=== PATIENT | male | born 1960 | race Caucasian/White ===

== ENCOUNTER 2022-01-28 04:03 | Emergency (ER) | payer MEDICAID ==
[~2022-01-28] VITALS: Ht 185.4 cm; Wt 156.5 kg
[~2022-01-28 04:03] MED LIST: LISI1TAB32 PO; METF-440 PO
--- NOTE | 2022-01-28 04:21 | NUR ---
PRESENTED TO THE ER FOR C/O LIGHTHEADEDNESS SINCE YESTERDAY. DENIED H/A, CP, SOB, OR N/V. AMBULATORY WITH STEADY GAITS TO BED 4. NO FACIAL DROOP OR SLURRED SPEECH NOTED. ON MONITOR. VSS. AWAITING FOR MD'S MAURA
[2022-01-28] MEDS ORDERED: ASPIRIN 325 MG TABLET ONE (04:39)
[2022-01-28] MEDS ORDERED: ASPIRIN 325 MG TABLET PO ONE (05:00)
[2022-01-28 06:02] LABS: BASOPHILS # (AUTO) 0.1 K/uL (0.0-0.2); BASOPHILS % (AUTO) 0.7 % (0.0-2.0); EOSINOPHILS % (AUTO) 1.4 % (0.0-6.0); HEMATOCRIT 45 % (39-51); HEMOGLOBIN 15.1 g/dL (13.5-17.5); LYMPHOCYTES # (AUTO) 2.8 K/uL (0.8-4.8); LYMPHOCYTES % (AUTO) 31.6 % (20.0-44.0); MEAN CORPUSCULAR HGB CONC 34 g/dl (31.0-36.0); MEAN CORPUSCULAR VOLUME 86 fL (80-96); MONOCYTES # (AUTO) 0.7 K/uL (0.1-1.30); MONOCYTES % (AUTO) 7.9 % (2.0-12.0); NEUTROPHILS # (AUTO) 5.1 K/uL (1.8-8.9); NEUTROPHILS % (AUTO) 58.4 % (43.0-81.0); PLATELET COUNT (AUTO) 300 K/uL (150-450); RED BLOOD CELL COUNT(AUTO) 5.21 MIL/uL (4.5-6.0); WHITE BLOOD COUNT (AUTO) 8.7 K/uL (4.3-11.0)
[2022-01-28 06:54] LABS: CHLORIDE 101 mmol/L (98-107); GLUCOSE 141 mg/dL (74-106); POTASSIUM 3.5 mmol/L (3.5-5.1); SODIUM SERUM 136 mmol/L (136-145); UREA NITROGEN, BLOOD 20 mg/dL (7-18)
[2022-01-28 07:07] LABS: CALCIUM, SERUM 8.8 mg/dL (8.5-10.1); CARBON DIOXIDE 24 mmol/L (21-32)
[2022-01-28] MEDS ORDERED: ATOR10TA PO (07:27)
[2022-01-28] MEDS ORDERED: CHLO25TA2 PO (07:27)
[2022-01-28] MEDS ORDERED: LISI10TA29 PO (07:27)
--- NOTE | 2022-01-28 07:30 | NUR ---
RECICEVED PT ASLEEPY RESPIRATION SPONT AND EASY ABLE TO AMBLATE TO BR NO DIZZNESS AT THIS TIME
--- NOTE | 2022-01-28 08:00 | NUR ---
REVALUATED BY DR. ALANNA LIEBERMAN WITH PT ABOUT PLAN OF CARE
--- NOTE | 2022-01-28 08:52 | NUR ---
BLOOD DROW FOR 2ND TROPONINE LEVEL
[2022-01-28 09:22] VITALS: BP 117/58
--- NOTE | 2022-01-28 09:22 | NUR ---
IV removed. Catheter intact and site benign. Pressure and 4x4 applied to site. No bleeding noted. Patient discharged to home in stable condition. Written and verbal after care instructions given. Patient verbalizes understanding of instruction.
[2022-01-28] MEDS ORDERED: ONDA4TAB5 PO (23:03)
[2022-01-29] MEDS ORDERED: LORAZEPAM 0.5 MG TABLET PO ONE (02:00)
== END 2022-01-28 09:23 | disposition home or self-care (01) ==
LOC: ER 04:13
DX: R06.09 Other forms of dyspnea (principal); E66.9 Obesity, unspecified; Z68.42 Body mass index [BMI] 45.0-49.9, adult; I10 Essential (primary) hypertension; Z82.49 Family history of ischemic heart disease and other diseases of the circulatory system; R73.03 Prediabetes; Z20.822 Contact with and (suspected) exposure to COVID-19; Z79.899 Other long term (current) drug therapy
CPT/HCPCS: 36415; 71045; 80048; 83880; 84484 ×2; 85025; 87426; 93005; 99285; C9803

== ENCOUNTER 2022-01-28 20:20 | Emergency (ER) | payer MEDICAID ==
[~2022-01-28] VITALS: Ht 185.4 cm; Wt 156.5 kg
[~2022-01-28 20:20] MED LIST changes: +ATOR10TA PO; +CHLO25TA2 PO; +LISI10TA29 PO
[2022-01-28 20:39] VITALS: BP 151/83
[2022-01-28] MEDS ORDERED: ONDANSETRON HCL/PF 4 MG/2 ML VIAL ONE (22:27)
[2022-01-28] MEDS: IV NS 0.9% 1,000 ML IV ONE (22:34)
[2022-01-28] MEDS: ONDANSETRON HCL/PF 4 MG/2 ML VIAL IV ONE (22:34)
[2022-01-28] MEDS ORDERED: ONDA4TAB5 PO (23:03)
[2022-01-29] MEDS ORDERED: LORAZEPAM 1 MG TABLET PO ONE (00:30)
== END 2022-01-29 00:09 | disposition home or self-care (01) ==
LOC: ER 20:34
DX: R55 Syncope and collapse (principal); R11.0 Nausea; F12.129 Cannabis abuse with intoxication, unspecified; I10 Essential (primary) hypertension; Z87.19 Personal history of other diseases of the digestive system; Z79.899 Other long term (current) drug therapy
CPT/HCPCS: 96361; 96374; 99283; J2405; J7030